=== PATIENT | female | born 1980 | race Native Hawaiian/Other Pacific Islander ===

== ENCOUNTER → 2024-04-25 09:10 | Outpatient (CLI) | payer OTHER, SELFPAY ==
--- NOTE | 2024-04-25 09:14 | DI.RAD.S_ITS ---
PROCEDURE: XR KNEE LT 3V INDICATIONS: Left knee pain TECHNIQUE: 3 views of the knee were acquired. COMPARISON: None. FINDINGS: Bones: No fractures or dislocations. No suspicious bony lesions. Soft tissues: No joint effusion. No suspicious soft tissue calcifications. IMPRESSION: No acute osseous abnormality. Dictated by: Yanna Rosas M.D. on 04/25/2024 at 8:33 Approved by: Yanna Rosas M.D. on 04/25/2024 at 8:34
== END ==
LOC: RAD 09:13
PROVIDERS: Referring Provider Registered Nurse; Visit Provider Registered Nurse
DX: M25.562 Pain in left knee (principal)
CPT/HCPCS: 73562

== ENCOUNTER → 2024-07-12 10:54 | Outpatient (CLI) | payer OTHER, SELFPAY ==
--- NOTE | 2024-07-12 10:55 | DI.MRI.S_ITS ---
PROCEDURE: MR KNEE LT WO CON INDICATIONS: r/o meniscal and/or ligament injury TECHNIQUE: Noncontrast sagittal PD fast spin echo and T2 fast spin echo with fat saturation, sagittal 3-D FLASH with fat saturation; coronal T1 spin echo and PD fast spin echo with fat saturation, and axial PD fast spin echo with fat saturation through the knee. COMPARISON: [facility], CR, XR KNEE LT 3V, 04/25/2024, 9:12. FINDINGS: Image quality: Excellent. Bones: The bone marrow signal is normal. There is no acute fracture or dislocation. Joints: There is no significant knee joint effusion. There is no significant knee osteoarthritis. Smith's cyst: Trace Smith's cyst. Menisci: The medial meniscus is normal. The lateral meniscus is normal. The posterior root attachments are normal. Cruciate ligaments: There is mild intermediate signal of the anterior cruciate ligament fibers, although the fiber orientation is preserved (7/18). There is no focal tear. The posterior cruciate ligament is normal. Collateral ligaments: The medial collateral ligament complex is normal. The lateral collateral ligament complex is normal. Popliteus Muscle/Tendon: The popliteus muscle and tendon are normal. Extensor mechanism: The quadriceps tendon is normal. The patellar tendon is normal. The medial and lateral patellar retinacular attachments are normal. Articular cartilage: There is a 1.2 centimeter area of fluid signal at the inferior lateral patellar facet (5/16) without underlying subchondral marrow edema (7/22). Otherwise, there is no focal articular cartilage defect. Other: A minimal amount of edema is present in the superolateral portion of Hoffa's fat pad (10/8; 5/18). IMPRESSION: 1. No evidence of a meniscal or cruciate ligament tear. 2. Mild mucoid degeneration of the anterior cruciate ligament. 3. Focal 1.2 cm area of fluid signal at the inferior-lateral patellar facet, which may represent chondral delamination versus congenital hypoplastic cartilage at that location. Please correlate with the patient's predominant location of pain. 4. Minimal edema in the superolateral portion of Hoffa's fat pad, which can be seen with Hoffa's fat pad impingement pathology. Dictated by: Arik Hernandez M.D. on 07/13/2024 at 10:00 Approved by: Arik Hernandez M.D. on 07/13/2024 at 10:42
== END ==
PROVIDERS: PCP Family Medicine; Referring Provider Family Medicine; Visit Provider Family Medicine
DX: S83.289A Other tear of lateral meniscus, current injury, unspecified knee, initial encounter (principal); M25.562 Pain in left knee
CPT/HCPCS: 73721

== ENCOUNTER → 2024-07-17 07:12 | Outpatient (CLI) | payer OTHER, SELFPAY ==
[2024-07-17 08:14] LABS: Add Manual Diff / Slide Review NO; Basophils Absolute Auto 0 /uL (0-100); Eosinophils Absolute Auto 100 /uL (0-450); Eosinophils Percent Auto 3.5 % (2-4); Hematocrit 36.5 % (36-46); Hemoglobin 12.2 g/dL (12.0-16.0); Lymphocytes Absolute Auto 1100 /uL (1100-4500); Lymphocytes Percent Auto 27.2 % (25-40); Mean Corpuscular HGB Conc 33.4 % (30-36); Mean Corpuscular Volume 86.8 fL (80-100); Monocytes Absolute Auto 400 /uL (0-900); Monocytes Percent Auto 10.5 % (3-14); Neutrophils Absolute Auto 2400 /uL (1500-7000); Neutrophils Percent Auto 57.8 % (50-75); Platelet Count 259 X10^3/uL (150-400); White Blood Cell Count 4.2 X10^3/uL (4.5-11.0)
[2024-07-17 08:44] LABS: Alanine Aminotransferase 19 IU/L (<35); Albumin 4.2 g/dL (3.5-5.0); Albumin Globulin Ratio 1.7 (1.0-2.8); Alkaline Phosphatase 50 U/L (38-126); Aspartate Aminotransferase 46 IU/L (14-36); BUN Creatinine Ratio 19.3 (6-22); Bilirubin Total 0.5 mg/dL (0.2-1.3); Blood Urea Nitrogen 16 mg/dL (7-17); Calcium 9.2 mg/dL (8.4-10.2); Carbon Dioxide 27 mmol/L (22-32); Chloride 102 mmol/L (98-107); Cholesterol 182 mg/dL (140-199); Estimated Glomerular Filt Rate > 60 mL/min (>60); Globulin 2.5 g/dL (1.7-4.1); Glucose 87 mg/dL (70-100); HDL Cholesterol 57 mg/dL (40-60); HEMOLYSIS < 15 (0-50); LDL Cholesterol Calculated 104 mg/dL (<100); Potassium 4.2 mmol/L (3.4-5.1); Sodium 136 mmol/L (137-145); Total Protein 6.7 g/dL (6.3-8.2); Triglycerides 103 mg/dL (35-150)
[2024-07-17 08:47] LABS: High Sensitivity CRP - Cardiac < 0.3 mg/L (1.0-3.0)
[2024-07-17 08:52] LABS: Vitamin D 25 Hydroxy (D3) 44.6 ng/mL (30.0-100.0)
== END ==
PROVIDERS: PCP Family Medicine; Referring Provider Family Medicine; Visit Provider Family Medicine
DX: Z00.00 Encounter for general adult medical examination without abnormal findings (principal); Z76.89 Persons encountering health services in other specified circumstances; E55.9 Vitamin D deficiency, unspecified; S83.282A Other tear of lateral meniscus, current injury, left knee, initial encounter; R35.89 Other polyuria
CPT/HCPCS: 36415; 80053; 80061; 82306; 85025; 86140